=== PATIENT | male | born 1975 | race Caucasian/White ===

== ENCOUNTER 2020-07-29 19:53 | Emergency (ER) | payer BC ==
[2020-07-29 20:18] VITALS: TEMP 98.9; BMI 29.2
[2020-07-29] MEDS ORDERED: IBUPROFEN 600 MG TABLET (FP) PO ONE ×2 (21:58→22:01)
[2020-07-29 22:16] VITALS: BP 123/86; PULSE 87
== END 2020-07-29 22:18 | disposition home or self-care (01) ==
LOC: JER 19:53
DX: M79.605 Pain in left leg (principal)
CPT/HCPCS: 93971-TC; 99284-25